=== PATIENT | female | born 1995 | race Two or more races ===

== ENCOUNTER 2017-03-13 20:53 | Emergency (ER) | payer MEDICAID, OTHER ==
[~2017-03-13] VITALS: Ht 160 cm; Wt 59.0 kg
[2017-03-13 21:36] LABS: Urine Bilirubin Negative (Negative); Urine Blood TRACE /uL (Negative); Urine Color Yellow (Yellow); Urine Glucose Normal (Normal); Urine Ketone Negative (Negative); Urine Nitrite Negative (Negative); Urine RBC 1 /hpf (0 - 4); Urine Squamous Epithelial Cell FEW /hpf (<5); Urine Urobilinogen Normal (Negative); Urine pH 5.5 (5.0-8.0)
[2017-03-13 22:01] LABS: INR 0.97 (0.9-1.15); Partial Thromboplastin Time 27.6 sec (22.64-33.71); Prothrombin Time 10.6 sec (9.37-12.3)
[2017-03-13 22:02] LABS: Basophils # (auto) 0 uL; Basophils % (auto) 0.6 % (0.0-2.0); CONDITION Y; Eosinophils # (auto) 0.1 uL; Hematocrit 41.5 % (36.0-46.0); Hemoglobin 14.2 g/dL (12.2-16.2); Lymphocytes % (auto) 42.8 % (10.0-50.0); Mean Corpuscular Hemoglobin 30.4 pg (28.0-32.0); Mean Corpuscular Hgb Conc. 34.2 g/dL (32.0-36.0); Mean Corpuscular Volume 88.7 fL (80.0-100.0); Mean Platelet Volume 10.2 fL (7.4-10.4); Monocytes # (auto) 0.6 uL; Monocytes % (auto) 8.7 % (0.0-12.0); Neutrophils # (auto) 3.2 uL; Neutrophils % (auto) 46.9 % (37.0-80.0); Platelet Count (auto) 210 10^3/uL (140-450); White Blood Cell 6.9 10^3/uL (4.4-10.8)
[2017-03-13 22:04] LABS: Albumin 4.2 g/dL (3.4-5.0); Bilirubin, Total 0.4 mg/dL (0.2-1.0); Calcium 8.9 mg/dL (8.5-10.1); Magnesium 2.3 mg/dL (1.6-2.6); Total Protein 7.9 g/dL (6.4-8.2)
[2017-03-14 07:00] VITALS: BP 127/77
== END 2017-03-14 07:10 | disposition home or self-care (01) ==
LOC: ER 21:05
DX: K64.8 Other hemorrhoids (principal); R51 Headache
CPT/HCPCS: 36415; 74176; 80053; 81001; 83735; 84702; 85025; 85610; 85730